=== PATIENT | female | born 1950 | race Caucasian/White ===

== ENCOUNTER 2018-02-09 15:50 | Emergency (ER) | payer MEDICARE, MEDICAID ==
[~2018-02-09] VITALS: Ht 167.6 cm; Wt 73.5 kg
[~2018-02-09 15:50] MED LIST: ALBU18HF2; ATEN25TA; CLON0.5T12; FLUT1DIS3; GABA-532; OMEP20CA10; RANI150T8; SERT50TA12; TRAZ-213
[2018-02-09 16:02] VITALS: BP 132/78
[2018-02-09] MEDS ORDERED: BACITRACIN ZINC OINT PACKET 1 EA PACKET TP ONE (16:25)
[2018-02-09] MEDS ORDERED: TDAP [DIPH/PERTUSSIS/TET] 0.5 ML VIAL IM ONE (16:25)
[2018-02-09] MEDS: TDAP [DIPH/PERTUSSIS/TET] 0.5 ML VIAL IM ONE (16:31)
[2018-02-09] MEDS: BACITRACIN ZINC OINT PACKET 1 EA PACKET TP ONE (16:31)
== END 2018-02-09 17:31 | disposition home or self-care (01) ==
LOC: ER 15:55
DX: S91.351A Open bite, right foot, initial encounter (principal); S51.851A Open bite of right forearm, initial encounter; J45.909 Unspecified asthma, uncomplicated; M19.90 Unspecified osteoarthritis, unspecified site; F17.200 Nicotine dependence, unspecified, uncomplicated; Z96.651 Presence of right artificial knee joint; Z79.899 Other long term (current) drug therapy; Z87.19 Personal history of other diseases of the digestive system; W54.0XXA Bitten by dog, initial encounter; Y93.89 Activity, other specified; Y92.89 Other specified places as the place of occurrence of the external cause; Y99.8 Other external cause status
CPT/HCPCS: 73630-TC; 90715; A4606; Z7610

== ENCOUNTER 2018-12-06 15:19 | Emergency (ER) | payer MEDICARE, MEDICAID ==
[~2018-12-06] VITALS: Ht 167.6 cm; Wt 70.8 kg
[~2018-12-06 15:19] MED LIST changes: -OMEP20CA10; +OMEP20CA11; -TRAZ-213; +TRAZ-252
--- NOTE | 2018-12-06 15:39 | NUR ---
CAME IN FOR RECTAL BLEEDING x 3 DAYS , TO ER BED 16, HOOKED TO MONITOR, CHANGED TO GOWN, PROVIDED W WARM BLANKET, AWAITING MD SINHA.
--- NOTE | 2018-12-06 15:54 | NUR ---
DR BENJAMIN AT BEDSIDE
[2018-12-06] MEDS ORDERED: IV NS 0.9% 1,000 ML BAG IV ONE (16:00)
[2018-12-06 16:08] LABS: BASOPHILS # (AUTO) 0.1 /CMM (0.0-0.2); BASOPHILS % (AUTO) 0.6 % (0.0-2.0); HEMATOCRIT 42 % (33-45); HEMOGLOBIN 13.9 g/dL (11.5-14.8); LYMPHOCYTES # (AUTO) 1.9 /CMM (0.8-4.8); LYMPHOCYTES % (AUTO) 15.5 % (20.0-44.0); MEAN CORPUSCULAR HGB CONC 33 g/dl (31.0-36.0); MEAN CORPUSCULAR VOLUME 94 fL (82-100); MONOCYTES # (AUTO) 1.2 /CMM (0.1-1.30); MONOCYTES % (AUTO) 10.1 % (2.0-12.0); NEUTROPHILS # (AUTO) 8.9 /CMM (1.8-8.9); NEUTROPHILS % (AUTO) 72.8 % (43.0-81.0); PLATELET COUNT (AUTO) 302 /CMM (150-450); WHITE BLOOD COUNT (AUTO) 12.3 K/uL (4.3-11.0)
--- NOTE | 2018-12-06 16:16 | NUR ---
CHAPERONED DR BENJAMIN DURING RECTAL EXAM. HEMOCCULT CARD SENT TO LAB
[2018-12-06 16:19] LABS: CALCIUM, SERUM 9.6 mg/dL (8.5-10.1); CREATININE 1.2 mg/dL (0.6-1.3); POTASSIUM 4.1 mmol/L (3.5-5.1)
[2018-12-06 16:25] LABS: ALBUMIN 3.5 g/dL (3.4-5.0); BILIRUBIN,DIRECT 0.2 mg/dL (0.0-0.2); BILIRUBIN,TOTAL 0.6 mg/dL (0.2-1.0); TOTAL PROTEIN, SERUM 6.6 g/dL (6.4-8.2)
[2018-12-06 16:56] LABS: OCCULT BLOOD STOOL NEGATIVE (NEGATIVE)
[2018-12-06 17:33] LABS: APPEARANCE,URINE Clear (CLEAR); BILIRUBIN,URINE Negative (NEGATIVE); BLOOD, URINE Negative Ery/uL (NEGATIVE); COLOR,URINE Yellow (YELLOW); KETONES,URINE Negative (NEGATIVE); LEUKOCYTE ESTERASE ,URINE Negative (NEGATIVE); NITRITE, URINE Negative (NEGATIVE); PH,URINE 6.5 (5.0-8.0); PROTEIN,URINE Negative (NEGATIVE); UGLUCOSE Negative (NEGATIVE); UROBILINOGEN,URINE 0.2 EU/dL (0.2)
--- NOTE | 2018-12-06 18:23 | NUR ---
IV removed. Catheter intact and site benign. Pressure and 4x4 applied to site. No bleeding noted.Patient discharged to home in stable condition. Written and verbal after care instructions given. Patient verbalizes understanding of instruction.
[2018-12-06 19:30] VITALS: BP 105/74
== END 2018-12-06 18:25 | disposition home or self-care (01) ==
LOC: ER 15:25
DX: R42 Dizziness and giddiness (principal); J45.909 Unspecified asthma, uncomplicated; F17.200 Nicotine dependence, unspecified, uncomplicated
CPT/HCPCS: 36415; 80048; 80076; 81001; 82272; 85025; 85730; 86850; 93005; 96360; 99284; J7030; 81000-TC

== ENCOUNTER 2022-08-13 21:16 | Emergency (ER) | payer MEDICARE, OTHER ==
[~2022-08-13] VITALS: Ht 157.5 cm; Wt 63.5 kg
[~2022-08-13 21:16] MED LIST changes: -CLON0.5T12; +CLON0.5T4; -OMEP20CA11; +OMEP20CA15
--- NOTE | 2022-08-13 21:44 | NUR ---
[id number] FOR NON RADIATING CHEST PAIN, "FEELS HEAVY", WORSE WHEN TAKING DEEP BREATH OR COUGHING. PAIN 6/10. RR EVEN AND NON LABORED. CONNECTED TO POX AND HEART MONITOR. VSS.
--- NOTE | 2022-08-13 21:45 | NUR ---
IV LHAND 20G
--- NOTE | 2022-08-13 21:46 | NUR ---
BLOOD COLLECTED AND SENT TO LAB
[2022-08-13 21:56] LABS: BASOPHILS % (AUTO) 0.7 % (0.0-2.0); EOSINOPHILS % (AUTO) 3.7 % (0.0-6.0); HEMATOCRIT 36 % (33-45); HEMOGLOBIN 11.8 g/dL (11.5-14.8); LYMPHOCYTES # (AUTO) 1.4 K/uL (0.8-4.8); LYMPHOCYTES % (AUTO) 20.1 % (20.0-44.0); MEAN CORPUSCULAR HGB CONC 33 g/dl (31.0-36.0); MEAN CORPUSCULAR VOLUME 92 fL (82-100); MONOCYTES # (AUTO) 0.4 K/uL (0.1-1.30); MONOCYTES % (AUTO) 5.2 % (2.0-12.0); NEUTROPHILS # (AUTO) 4.9 K/uL (1.8-8.9); NEUTROPHILS % (AUTO) 70.3 % (43.0-81.0); PLATELET COUNT (AUTO) 210 K/uL (150-450); RED BLOOD CELL COUNT(AUTO) 3.92 MIL/uL (4.0-5.2)
[2022-08-13 22:18] LABS: ALANINE AMINOTRANSFERASE 33 U/L (12-78); ALBUMIN 3.3 g/dL (3.4-5.0); ALKALINE PHOSPHATASE 98 U/L (46-116); ASPARTATE AMINOTRANSFERASE 25 U/L (15-37); BILIRUBIN,DIRECT 0.1 mg/dL (0.0-0.2); BILIRUBIN,TOTAL 0.3 mg/dL (0.2-1.0); CALCIUM, SERUM 9.6 mg/dL (8.5-10.1); CARBON DIOXIDE 21 mmol/L (21-32); CHLORIDE 103 mmol/L (98-107); CREATININE 1.2 mg/dL (0.6-1.3); GLUCOSE 106 mg/dL (74-106); SODIUM SERUM 135 mmol/L (136-145); UREA NITROGEN, BLOOD 24 mg/dL (7-18)
[2022-08-13] MEDS ORDERED: IBUPROFEN 400 MG TABLET PO ONE (22:30)
--- NOTE | 2022-08-13 23:28 | NUR ---
LAB AT BEDSIDE FOR 2ND TROPONIN
--- NOTE | 2022-08-14 00:55 | NUR ---
IV removed. Catheter intact and site benign. Pressure and 4x4 applied to site. No bleeding noted.
--- NOTE | 2022-08-14 00:56 | NUR ---
Patient discharged to home in stable condition. Written and verbal after care instructions given. Patient verbalizes understanding of instruction.
[2022-08-14 00:58] VITALS: BP 116/71
== END 2022-08-14 00:59 | disposition home or self-care (01) ==
LOC: ER 21:27
DX: R07.9 Chest pain, unspecified (principal); I10 Essential (primary) hypertension; J45.909 Unspecified asthma, uncomplicated; M19.90 Unspecified osteoarthritis, unspecified site; F17.200 Nicotine dependence, unspecified, uncomplicated; Z96.651 Presence of right artificial knee joint; Z79.899 Other long term (current) drug therapy
CPT/HCPCS: 36415; 71045-TC; 80048-TC; 80076-TC; 84484-TC; 85025-TC

== ENCOUNTER 2023-01-05 02:20 | Inpatient (IN) | payer MEDICARE, OTHER ==
[~2023-01-05] VITALS: Ht 157.5 cm; Wt 81.6 kg
[2023-01-05 03:13] LABS: CALCIUM, SERUM 9.3 mg/dL (8.5-10.1); CARBON DIOXIDE 27 mmol/L (21-32); CHLORIDE 102 mmol/L (98-107); CREATININE 1.3 mg/dL (0.6-1.3); GLUCOSE 118 mg/dL (74-106); POTASSIUM 4.7 mmol/L (3.5-5.1); SODIUM SERUM 135 mmol/L (136-145); UREA NITROGEN, BLOOD 28 mg/dL (7-18)
[2023-01-05 03:14] LABS: BASOPHILS # (AUTO) 0.1 K/uL (0.0-0.2); EOSINOPHILS % (AUTO) 0.1 % (0.0-6.0); HEMATOCRIT 38 % (33-45); HEMOGLOBIN 12.3 g/dL (11.5-14.8); LYMPHOCYTES # (AUTO) 0.8 K/uL (0.8-4.8); LYMPHOCYTES % (AUTO) 11.7 % (20.0-44.0); MEAN CORPUSCULAR HEMOGLOBIN 31 PG (26.0-33.0); MEAN CORPUSCULAR HGB CONC 33 g/dl (31.0-36.0); MEAN CORPUSCULAR VOLUME 97 fL (82-100); MONOCYTES # (AUTO) 0.3 K/uL (0.1-1.30); MONOCYTES % (AUTO) 3.9 % (2.0-12.0); NEUTROPHILS # (AUTO) 5.6 K/uL (1.8-8.9); NEUTROPHILS % (AUTO) 83.3 % (43.0-81.0); PLATELET COUNT (AUTO) 219 K/uL (150-450); RED BLOOD CELL COUNT(AUTO) 3.91 MIL/uL (4.0-5.2); RED CELL DISTRIBUTION WIDTH 18.8 % (11.5-15.0); WHITE BLOOD COUNT (AUTO) 6.7 K/uL (4.3-11.0)
[2023-01-05] MEDS ORDERED: MAGNESIUM HYDROXIDE 30 ML UDC PO PRN (07:30)
[2023-01-05] MEDS ORDERED: ACETAMINOPHEN 325 MG TABLET PO PRN (07:30)
[2023-01-05] MEDS ORDERED: MAG HYDROX/AL HYDROX/SIMETH 30 ML UDC PO PRN (07:30)
[2023-01-05] MEDS ORDERED: ONDANSETRON HCL/PF 4 MG/2 ML VIAL IVP PRN (07:30)
[2023-01-05] MEDS ORDERED: FOLI0.8C PO (07:33)
[2023-01-05] MEDS ORDERED: FLUT1BLS6 IH (07:33)
[2023-01-05] MEDS ORDERED: METH4TAB3 PO (07:33)
[2023-01-05] MEDS ORDERED: DICY20TA11 PO (07:33)
[2023-01-05] MEDS ORDERED: MAGN400T8 PO (07:33)
[2023-01-05] MEDS ORDERED: BUPR-54 PO (07:33)
[2023-01-05] MEDS ORDERED: ROSU40TA PO (07:33)
[2023-01-05] MEDS ORDERED: ALBU8.5H8 IH (07:33)
[2023-01-05] MEDS ORDERED: GABA-532 PO (07:33)
[2023-01-05] MEDS ORDERED: METH2.5T PO (07:33)
[2023-01-05] MEDS ORDERED: ZOLP5TAB2 PO (07:33)
[2023-01-05] MEDS ORDERED: ATEN25TA PO (07:33)
[2023-01-05] MEDS ORDERED: CHOL500052 PO (07:33)
[2023-01-05] MEDS ORDERED: CLOP75TA15 PO (07:33)
[2023-01-05] MEDS ORDERED: HYDR-3976 PO (07:33)
[2023-01-05] MEDS ORDERED: AMOX1TAB15 PO (07:33)
[2023-01-05] MEDS ORDERED: CLON0.5T4 PO (07:33)
[2023-01-05] MEDS ORDERED: ASPI-1420 PO (07:33)
[2023-01-05] MEDS ORDERED: DEXL30CA3 PO (07:33)
[2023-01-05 10:00] VITALS: O2SAT 99
[2023-01-05 12:00] VITALS: BP 121/87; TEMP 98; O2SAT 96
[2023-01-05] MEDS ORDERED: IOHEXOL-350 100 ML VIAL IV ONE (12:45)
[2023-01-05] MEDS ORDERED: IV NS 0.9% 250 ML IV ONE (12:45)
[2023-01-05 16:00] VITALS: BP 121/66; TEMP 97.7; O2SAT 99
[2023-01-05] MEDS: ENOXAPARIN SODIUM 40 MG/0.4 ML DISP.SYRIN SQ SCH (16:35)
[2023-01-05 17:00] VITALS: BP_SYST 123; BP_SYST 124; BP_SYST 128; BP_DIAS 70; BP_DIAS 80; BP_DIAS 81
[2023-01-05 19:30] LABS: AMPHETAMINE, URINE NEGATIVE (NEGATIVE); BENZODIAZEPINE, URINE NEGATIVE (NEGATIVE); CANNABINOID, URINE NEGATIVE (NEGATIVE); COCCAINE, URINE NEGATIVE (NEGATIVE); PHENCYCLIDINE SCREEN,URINE NEGATIVE (NEGATIVE)
[2023-01-05 19:44] LABS: BARBITURATE, URINE POSITIVE (NEGATIVE); OPIATE, URINE POSITIVE (NEGATIVE)
[2023-01-05 20:00] VITALS: BP 111/69; TEMP 98.4; O2SAT 99
[2023-01-06] VITALS: BP 149/67; TEMP 98.1; O2SAT 98
[2023-01-06 04:00] VITALS: BP 121/62; TEMP 98.2; O2SAT 97
[2023-01-06 07:04] LABS: BASOPHILS % (AUTO) 0.4 % (0.0-2.0); EOSINOPHILS # (AUTO) 0.1 K/uL (0.0-0.7); EOSINOPHILS % (AUTO) 1.5 % (0.0-6.0); HEMATOCRIT 38 % (33-45); HEMOGLOBIN 12.2 g/dL (11.5-14.8); LYMPHOCYTES % (AUTO) 36.1 % (20.0-44.0); MEAN CORPUSCULAR HEMOGLOBIN 31 PG (26.0-33.0); MEAN CORPUSCULAR HGB CONC 32 g/dl (31.0-36.0); MEAN CORPUSCULAR VOLUME 98 fL (82-100); MONOCYTES # (AUTO) 0.7 K/uL (0.1-1.30); MONOCYTES % (AUTO) 12.3 % (2.0-12.0); NEUTROPHILS # (AUTO) 2.7 K/uL (1.8-8.9); NEUTROPHILS % (AUTO) 49.7 % (43.0-81.0); PLATELET COUNT (AUTO) 169 K/uL (150-450); RED BLOOD CELL COUNT(AUTO) 3.88 MIL/uL (4.0-5.2); WHITE BLOOD COUNT (AUTO) 5.5 K/uL (4.3-11.0)
[2023-01-06 07:32] LABS: CALCIUM, SERUM 8.9 mg/dL (8.5-10.1); MAGNESIUM 2.5 mg/dL (1.8-2.4); PHOSPHORUS 3.8 mg/dL (2.5-4.9)
[2023-01-06 08:00] VITALS: BP 121/63; TEMP 98.8; O2SAT 98
[2023-01-06] MEDS: ENOXAPARIN SODIUM 40 MG/0.4 ML DISP.SYRIN SQ SCH (08:29)
== END 2023-01-06 10:30 | disposition left against medical advice (07) | DRG 149 ==
LOC: ER 02:24 → TELE 10:36
PROVIDERS: ADMIT Nurse Practitioner Acute Care; ATTEND Student in an Organized Health Care Education/Training Program
DX: H81.10 Benign paroxysmal vertigo, unspecified ear (principal); E87.1 Hypo-osmolality and hyponatremia; I10 Essential (primary) hypertension; J45.909 Unspecified asthma, uncomplicated; Z95.5 Presence of coronary angioplasty implant and graft; Z96.651 Presence of right artificial knee joint; I25.119 Atherosclerotic heart disease of native coronary artery with unspecified angina pectoris
CPT/HCPCS: 36415; 70450-TC; 70496-TC; 70498-TC; 71045-TC; 80048-TC; 80061-TC; 83735-TC; 84100-TC; 84484-TC; 85025-TC; 93307-TC; G0378; J1650; J7050; Q9967